=== PATIENT | male | born 1955 | race Caucasian/White ===

== ENCOUNTER → 2017-06-30 | Outpatient (CLI) | payer OTHER ==
[~2017-06-30] MED LIST: DIPH25CA65 PO; EPP3/2 IM; MULTTAB PO; NAPR1TAB9 PO; POTA1TAB PO; RELACOR PO
--- NOTE | 2017-06-30 15:46 | DIAGNOSTIC IMAGING REPORT ---
CHEST 2 VIEWS ROUTINE CLINICAL HISTORY: COUGH COMPARISON STUDY: No previous studies for comparison. FINDINGS: The cardiac and mediastinal contours are normal. There is no evidence of focal pulmonary consolidation. There is no evidence of failure. No pleural effusions are visualized.[ There is a linear by basilar atelectasis/scarring IMPRESSION: Linear by basilar atelectasis/scarring. Otherwise negative chest Electronically signed by: Thiago Lakhani M.D. 06/30/2017 3:45 PM Dictated Date/Time: 06/30/2017 3:45 PM
== END | disposition home or self-care (01) ==
LOC: C.RADPV 15:25
PROVIDERS: ATTEND Family Medicine
DX: R05 Cough (principal)